=== PATIENT | male | born 1945 | race Caucasian/White ===

== ENCOUNTER 2023-07-27 06:25 | Day surgery (SDC) | payer MEDICARE, OTHER, SELFPAY ==
[2023-07-20 08:29] VITALS: BMI 27.1
--- NOTE | 2023-07-20 15:52 | PTCARENOTE ---
Dr. Celaya made aware of abnormal EKG dated 07/20/23- no further action requested.
[2023-07-27] VITALS (7 sets, daily range): BP systolic 106–144; BP diastolic 49–85; BMI 27.1; BMI 28.5
[2023-07-27] MEDS: CYSVIEW KIT 100 MG INTRAVES (12:12)
[2023-07-27] MEDS: NORMOSOL-R 1000 IV (12:39)
[2023-07-27] MEDS: Pyridium 200 MG PO (14:23)
== END 2023-07-27 15:31 | disposition home or self-care (01) ==
LOC: SDS 06:25
PROVIDERS: ATTENDING PHYSICIAN Specialist; FAMILY PHYSICIAN Family Medicine
DX: N40.0 Benign prostatic hyperplasia without lower urinary tract symptoms (principal); Z08 Encounter for follow-up examination after completed treatment for malignant neoplasm; Z85.51 Personal history of malignant neoplasm of bladder; Z87.448 Personal history of other diseases of urinary system
CPT/HCPCS: 52000